=== PATIENT | male | born 1975 ===

== ENCOUNTER 2017-01-26 07:00 | Inpatient (IN) | payer OTHER ==
[~2017-01-26] VITALS: Ht 167.6 cm; Wt 92.5 kg
[2017-02-01] VITALS (12 sets, daily range): BP systolic 131–168; BP diastolic 77–107
[2017-02-01] MEDS ORDERED: AMLODIPINE BES2.5 MG ORAL ×2 (05:56→15:41)
[2017-02-01] MEDS ORDERED: Thrombin 5000 units TOPIC ONE (06:56)
--- NOTE | 2017-02-01 06:56 | Pre-Procedure Note/Attestation ---
Pre-Procedure Note/Attestation Complete Prior to Procedure Planned Procedure: not applicable Procedure Narrative: Cervical 56 artificial disc replacement, C67 anterior cervical discectomy and fusion Indications for Procedure Pre-Operative Diagnosis: Herniation C56,67 Attestation I attest that I discussed the nature of the procedure; its benefits; risks and complications; and alternatives (and the risks and benefits of such alternatives ), prior to the procedure, with the patient (or the patient's legal airport representative). I attest that, if there was a reasonable possibility of needing a blood transfusion, the patient (or the patient's legal airport representative) was given the [facility] standardized written summary, pursuant to the [place] Kathy Blood Safety Act ([place] Health and Safety Code # 1645, as amended). I attest that I re-evaluated the patient just prior to the surgery and that there has been no change in the patient's H&P, except as documented below: RADHA HOLLIS Feb 01, 2017 06:56
[2017-02-01] MEDS ORDERED: Bacitracin 50000 Units Vial ONE (06:57)
[2017-02-01] MEDS ORDERED: Surgicel 4in x 8in TOPIC ONE (06:57)
[2017-02-01] MEDS ORDERED: Vancomycin 1gm inj IVPB ONE (06:57)
--- NOTE | 2017-02-01 06:57 | Brief Operative Note ---
Immediate Post Operative Note Operative Note Chief Complaint: neck pain and radiculopathy Pre-op Diagnosis: Herniation C56,67 Procedure: Cervical 56 artificial disc replacement, C67 anterior cervical discectomy and fusion Post-op Diagnosis: same as pre-op Findings: consistent w/pre-op dx studies Surgeon: Bartolo Tape Rules Printing Machine Operator: Wolf Anesthesia: general Specimen: none Complications: none Condition: stable Estimated Blood Loss: minimal Drains: none Implant(s) used?: Yes - Prodisc c sz5, nuvasive interlock sz 6 and screws 13x3 RADHA HOLLIS Feb 01, 2017 06:57
[2017-02-01] MEDS ORDERED: Lidocaine 1% Plain 30 ml INJ ONE (07:00)
[2017-02-01] MEDS ORDERED: ceFAZolin sod 2 GM in D5W 110 ML IVPB ONE (07:00)
[2017-02-01] MEDS ORDERED: Dexamethasone 4mg/ml vial ONE (07:00)
[2017-02-01] MEDS ORDERED: NS Irrig 1000ml ONE (07:00)
[2017-02-01] MEDS ORDERED: Nimbex 2mg/ml Inj 10ML IVP ONE (07:00)
[2017-02-01] MEDS ORDERED: Propofol 1,000mg/ 100ml btl IV ONE (07:00)
[2017-02-01] MEDS ORDERED: Neostigmine 1mg/ml 10ml Inj ONE (07:00)
[2017-02-01] MEDS ORDERED: Sterile Water Irrig 1000ml IRRIG ONE (07:00)
[2017-02-01] MEDS ORDERED: Glycopyrrolate 0.2mg/ml 1ml Vial ONE (07:00)
[2017-02-01] MEDS ORDERED: LR 1000ml ONE (07:00)
[2017-02-01] MEDS ORDERED: fentaNYL 100 mcg/2 mL IV ONE (07:00)
[2017-02-01] MEDS ORDERED: Sugammadex Sodium 200mg/2ml vial IV ONE (07:00)
[2017-02-01] MEDS ORDERED: LR 1000ml 1,000 ML IVLG SCH (07:04)
--- NOTE | 2017-02-01 07:07 | Anethesia Preoperative Eval ---
Anesthesia Pre-op PMH/ROS General Date of Evaluation: Feb 01, 2017 Time of Evaluation: 07:11 Anesthesiologist: Zulma ASA Score: ASA 2 Mallampati Score Class I : Soft palate, uvula, fauces, pillars visible Class II: Soft palate, uvula, fauces visible Class III: Soft palate, base of uvula visible Class IV: Only hard plate visible Mallampati Classification: Class II Surgeon: Bartolo Diagnosis: Neck Pain Surgical Procedure: ADR C5-6, ACDF C6-7 Anesthesia History: none Family History: no anesthesia problems Allergies: Coded Allergies: No Known Allergies (Unverified , 01/31/17) Medications: see eMAR Past Medical History Cardiovascular: Reports: HTN Other: obesity - BMI 33 Anesthesia Pre-op Phys. Exam Physician Exam Last Vital Signs Date Time Temp Pulse Resp B/P (MAP) Pulse Ox O2 Delivery O2 Flow Rate FiO2 02/01/17 05:52 98.2 55 20 134/77 98 Room Air Constitutional: NAD Neurologic: CN 2-12 intact Cardiovascular: RRR Respiratory: CTA Gastrointestinal: S/NT/ND Airway Exam Mallampati Score: Class II MO: limited ROM: limited Teeth: intact Anesthesia Pre-op A/P Risk Assessment & Plan Assessment: ASA 2 Plan: GA, BIS, GlideScope Status Change Before Surgery: No Pre-Antibiotics Dru Grams Ancef IV Given Within 1 Hr of Incision: Yes Time Given: 07:31 Jr Maya MD Feb 01, 2017 07:07
[2017-02-01] MEDS ORDERED: Norco 7.5mg/325mg tab ORAL PRN ×3 (07:15→12:00)
[2017-02-01] MEDS ORDERED: Midazolam 2mg/2ml Inj IVP PRN (07:15)
[2017-02-01] MEDS ORDERED: Labetalol 5mg/ml 20ml vial IV PRN (07:15)
[2017-02-01] MEDS ORDERED: oxyCODONE HCL/Acetaminophen 5/325mg ORAL PRN (07:15)
[2017-02-01] MEDS ORDERED: DiphenhydrAMINE 50mg/ml Inj IVP PRN (07:15)
[2017-02-01] MEDS ORDERED: LORazepam Inj 2mg/ml 1ml IV PRN (07:15)
[2017-02-01] MEDS ORDERED: Ketorolac 60mg Inj IM PRN (07:15)
[2017-02-01] MEDS ORDERED: Acetaminophen (Non formulary) 100 ML IV ONE (07:15)
[2017-02-01] MEDS ORDERED: Ketorolac 30mg Inj IV PRN (07:15)
[2017-02-01] MEDS ORDERED: Atropine Inj 1mg/10ml Syr IV PRN (07:15)
[2017-02-01] MEDS ORDERED: fentaNYL 100 mcg/2 mL IV PRN (07:15)
[2017-02-01] MEDS ORDERED: Norco 5mg/325mg tab ORAL PRN ×2 (07:15→12:00)
[2017-02-01] MEDS ORDERED: Hydromorphone 0.5mg/0.5ml inj IVP PRN (07:15)
--- NOTE | 2017-02-01 07:17 | Immediate Post-Op Evaluation ---
Immediate Post-Op Evalulation Immediate Post-Op Evalulation Procedure: ADR C5-6, ACDF C6-7 Date of Evaluation: Feb 01, 2017 Blood Products: 0 Nausea: No Vomiting: No Complications 0 Patient Status: awake, reacts, patent, extubated, none Hydration Status: adequate Dru Grams Ancef IV Given Within 1 Hr of Incision: Yes Jr Maya MD Feb 01, 2017 07:17
--- NOTE | 2017-02-01 09:52 | Immediate Post-Op Evaluation ---
Immediate Post-Op Evalulation Immediate Post-Op Evalulation Procedure: ADR C5-6, ACDF C6-7 Date of Evaluation: Feb 01, 2017 Time of Evaluation: 10:03 IV Fluids: 1000 LR Blood Products: 0 Estimated Blood Loss: 25 Urinary Output: 300 Blood Pressure Systolic: 158 Blood Pressure Diastolic: 107 Pulse Rate: 91 Respiratory Rate: 16 O2 Sat by Pulse Oximetry: 100 Temperature (Fahrenheit): 97.8 Pain Score (1-10): 2 Nausea: No Vomiting: No Complications 0 Patient Status: awake, reacts, patent, extubated, none Hydration Status: adequate Dru Grams Ancef IV Given Within 1 Hr of Incision: Yes Time Given: 07:31 Jr Maya MD Feb 01, 2017 09:52
[2017-02-01] MEDS ORDERED: Metoclopramide 10mg/2ml Inj IVP PRN (12:00)
[2017-02-01] MEDS ORDERED: Naloxone 0.4mg/ml Inj IVP PRN (12:00)
[2017-02-01] MEDS ORDERED: HYDROmorphone 1mg/ml Carpuject SUBQ PRN (12:00)
[2017-02-01] MEDS ORDERED: HYDROmorphone 1mg/ml Carpuject IVP PRN (12:00)
[2017-02-01] MEDS ORDERED: Milk of Magnesia 30ml Ud ORAL PRN (12:00)
[2017-02-01] MEDS ORDERED: Chloraseptic Spray 20mL Bottle ORAL PRN (13:00)
[2017-02-01] MEDS: NS w/KCl 20mEq 1,000 ML IV SCH ×2 (13:02→23:30)
[2017-02-01] MEDS: Dexamethasone 4mg/ml vial IVP SCH ×3 (13:02→23:43)
--- NOTE | 2017-02-01 14:27 | Consultation ---
History of Present Illness General Date patient seen: Feb 01, 2017 Time patient seen: 14:27 Chief Complaint: intractable neck pain and radiculopathy Referring physician: Dr. Mcfarland Reason for Consultation: med oneil Present Illness HPI 41y/o male with h/o intractable neck pain and radiculopathy 2/2 cervical disc herniation who presents s/p cervical 56 artificial disc replacement, C67 anterior cervical discectomy and fusion today. Pt doing well immediately postop. Pain controlled. Denies f/c, n/v, d/c, chest pain, SOB. Allergies: Coded Allergies: No Known Allergies (Unverified , 01/31/17) Medication History Scheduled Amlodipine Besylate* (Amlodipine Besylate*), 2.5 MG ORAL DAILY Scheduled PRN Hydrocodone Bit/Acetaminophen 10-325* (Whiting 10-325*), 1 TAB ORAL Q8HR PRN for For Pain, (Reported) Patient History History Provided By: Patient, Medical Record, PMD Healthcare decision maker GABO- Resuscitation status Full Code Advanced Directive on File Past Medical/Surgical History Past Medical/Surgical History: (1) HTN (hypertension) (2) HNP (herniated nucleus pulposus), cervical Family History Family History: (1) No significant family history Social History Social History: (1) No significant social history Review of Systems ROS Narrative CONSTITUTIONAL: No weight loss, fever, chills, weakness or fatigue. HEENT: Eyes: No visual loss, blurred vision, double vision or yellow sclerae. Ears, Nose, Throat: No hearing loss, sneezing, congestion, runny nose or sore throat. SKIN: No rash or itching. CARDIOVASCULAR: No chest pain, chest pressure or chest discomfort. No palpitations or edema. RESPIRATORY: No shortness of breath, cough or sputum. GASTROINTESTINAL: No anorexia, nausea, vomiting or diarrhea. No abdominal pain or blood. NEUROLOGICAL: No headache, dizziness, syncope, paralysis, ataxia, numbness or tingling in the extremities. No change in bowel or bladder control. MUSCULOSKELETAL: No muscle, back pain, joint pain or stiffness. HEMATOLOGIC: No anemia, bleeding or bruising. LYMPHATICS: No enlarged nodes. No history of splenectomy. PSYCHIATRIC: No history of depression or anxiety. ENDOCRINOLOGIC: No reports of sweating, cold or heat intolerance. No polyuria or polydipsia. ALLERGIES: No history of asthma, hives, eczema or rhinitis. Physical Exam Physical Exam Narrative General: alert, cooperative, no distress, appears stated age Head: normocephalic, without obvious abnormality, atraumatic Eyes: conjunctivae/corneas clear. PERRL, EOM's intact Throat: lips, mucosa, and tongue normal. MMM Neck: supple, symmetrical, trachea midline, and no JVD Lungs: clear to auscultation bilaterally Heart: regular rate and rhythm, S1, S2 normal, no murmur, click, rub or gallop Abdomen: soft, non-tender, non-distended, bowel sounds normal; no masses or organomegaly Extremities: extremities normal, atraumatic, no cyanosis or edema Pulses: 2+ and symmetric Skin: skin color, texture, turgor normal; dressing c/d/i Neurologic: grossly normal, no focal deficits Last 24 Hour Vital Signs Date Time Temp Pulse Resp B/P (MAP) Pulse Ox O2 Delivery O2 Flow Rate FiO2 02/01/17 12:00 98.2 97 18 143/91 98 Nasal Cannula 3.0 02/01/17 11:00 97.3 68 16 166/85 98 Nasal Cannula 3.0 02/01/17 10:42 70 15 159/92 100 Nasal Cannula 3.0 02/01/17 10:30 73 17 164/97 100 Simple Mask 6.0 02/01/17 10:15 81 12 167/100 100 Simple Mask 6.0 02/01/17 10:00 90 14 168/102 100 Simple Mask 6.0 02/01/17 09:52 97.8 94 16 158/107 100 Room Air 02/01/17 09:52 91 16 100 02/01/17 09:50 97.8 94 16 158/107 100 Simple Mask 6.0 02/01/17 05:52 98.2 55 20 134/77 98 Room Air Intake and Output 02/01/17 02/02/17 19:00 07:00 Intake Total 300 ml Output Total 320 ml Balance -20 ml Intake Oral 50 ml IV Total 250 ml Output Urine Total 300 ml Estimated Blood Loss 20 ml Height (Feet): 5 Height (Inches): 6.00 Weight (Pounds): 204 Medications Current Medications Medications (Trade) Dose Ordered Sig/Di Route PRN Reason Start Time Stop Time Status Last Admin Dose Admin Acetaminophen (Tylenol) 650 mg Q4H PRN ORAL headache or temp>101 02/01/17 12:00 03/03/17 11:59 Acetaminophen/ Hydrocodone Bitart (Whiting 5/325) 1 tab Q3H PRN ORAL Mild Pain (Pain Scale 1-3) 02/01/17 12:00 02/08/17 11:59 Acetaminophen/ Hydrocodone Bitart (Whiting 7.5/325) 1 ea Q3H PRN ORAL Moderate Pain (Pain Scale 4-6) 02/01/17 12:00 02/08/17 11:59 Acetaminophen/ Hydrocodone Bitart (Whiting 7.5/325) 2 ea Q3H PRN ORAL Severe Pain (Pain Scale 7-10) 02/01/17 12:00 02/08/17 11:59 Carisoprodol (Soma) 350 mg TIDPRN PRN ORAL SPASM 02/01/17 12:00 03/03/17 11:59 Cefazolin Sodium 1 gm/Dextrose 55 ml @ 110 mls/hr Q8H IV 02/01/17 15:30 02/02/17 07:59 Cetylpyridinium Chloride (Cepacol) 1 lozenge Q2H PRN AVELINA THROAT SORENESS 02/01/17 12:00 03/03/17 11:59 Dexamethasone Sodium Phosphate (Decadron 4mg/ml vial) 4 mg Q6HR IVP 02/01/17 12:00 02/02/17 06:01 02/01/17 13:02 Docusate Sodium (Colace) 100 mg TWICE A DAY ORAL 02/01/17 18:00 03/03/17 17:59 Hydromorphone HCl (Dilaudid) 1 mg Q2H PRN IVP Breakthrough Pain 4-10 02/01/17 12:00 02/08/17 11:59 Hydromorphone HCl (Dilaudid) 1 mg Q4H PRN SUBQ Mild Pain (Pain Scale 1-3) 02/01/17 12:00 02/08/17 11:59 Hydromorphone HCl (Dilaudid) 2 mg Q3H PRN SUBQ Severe Pain (Pain Scale 7-10) 02/01/17 12:00 02/08/17 11:59 Hydromorphone HCl (Dilaudid) 2 mg Q4H PRN SUBQ Moderate Pain (Pain Scale 4-6) 02/01/17 12:00 02/08/17 11:59 Magnesium Hydroxide (Mom) 30 ml QIDPRN PRN ORAL Constipation 02/01/17 12:00 03/03/17 11:59 Metoclopramide HCl (Reglan) 10 mg Q6H PRN IVP Nausea & Vomiting 02/01/17 12:00 03/03/17 11:59 Naloxone HCl (Narcan) 0.1 mg PRN PRN IVP RR<12/min, pt unarousable 02/01/17 12:00 03/03/17 11:59 Ondansetron HCl (Zofran) 4 mg Q6H PRN IVP Nausea & Vomiting 02/01/17 12:00 03/03/17 11:59 Phenol/Menthol (Chloraseptic) 1 spray Q3H PRN ORAL THROAT SORENESS 02/01/17 13:00 03/03/17 12:59 Sodium Chloride 1,000 ml @ 100 mls/hr Q10H IV 02/01/17 12:45 03/03/17 12:44 02/01/17 13:02 Temazepam (Restoril) 15 mg HSPRN PRN ORAL Insomnia 02/01/17 21:00 02/08/17 20:59 Assessment/Plan Problem List: (1) HNP (herniated nucleus pulposus), cervical ICD Codes: M50.20 - Other cervical disc displacement, unspecified cervical region SNOMED: 04953515 (2) HTN (hypertension) ICD Codes: I10 - Essential (primary) hypertension SNOMED: 34890588 Status: stable Assessment/Plan s/p Cervical 56 artificial disc replacement, C67 anterior cervical discectomy and fusion Post operative recommendations include: - encourage mobilization/ambulation - encourage incentive spirometry to optimize pulmonary hygiene - DVT/GI prophylaxis as appropriate - pain control, supportive care, bowel regimen FULL CODE D/w pt/family, RN, SW/CM, surgery regarding mgmt and dispo Roger Dennis M.D. Feb 01, 2017 14:27
[2017-02-01] MEDS: ceFAZolin sod 1 GM in D5W 55 ML IV SCH ×2 (16:44→23:43)
[2017-02-01] MEDS: Docusate 100mg cap ORAL SCH (18:20)
--- NOTE | 2017-02-01 20:46 | Operative Note - Dictated ---
DATE OF OPERATION: 02/01/2017 DATE OF OPERATION: 02/01/2017. SURGEON: Manolo Mcfarland MD, orthopedic spine surgeon. STRIPPING SHOVEL OILER: MIN Sanchez. PREOPERATIVE DIAGNOSES: 1. Intractable neck pain. 2. Radiculopathy. 3. Herniation, C5-C6 and C6-C7. 4. Neural foraminal stenosis C5-C6 and C6-C7. 5. Stenosis. POSTOPERATIVE DIAGNOSES: 1. Intractable neck pain. 2. Radiculopathy. 3. Herniation, C5-C6 and C6-C7. 4. Neural foraminal stenosis C5-C6 and C6-C7. 5. Stenosis. PROCEDURE PERFORMED: 1. Anterior cervical discectomy and artificial disc replacement of C5-C6 and C6-C7 using a Synthes Prodisc C 5 height. Anterior Cervical discectomy and fusion C6-C7 at that level NuVasive Interlock-C size 6 mm with 1 mL of Osteocel bone, three screws of 13 mm. 2. Use of intraoperative microscope. 3. Motor evoked potential monitoring. 4. Somatosensory evoked potential monitoring. 5. Supervision and interpretation of fluoroscopy. COMPLICATIONS: None. ANESTHESIA: General. ESTIMATED BLOOD LOSS: Less than 100 mL. INDICATIONS FOR SURGERY: This patient is a 41-year-old male who has a history of diagnoses as listed above. As of result of this, the patient sustained intractable neck pain, radiculopathy, herniation, C5-C6 and C6-C7, neural foraminal stenosis C5-C6 and C6-C7 and stenosis. We tried a course of conservative management but despite this course there was still a significant component of persistent, recalcitrant neck pain and arm pain. The MRI demonstrated significant neural foraminal compromise secondary to disc herniations at C5-C6 and C6-C7. We had a long discussion with the patient regarding the risks and benefits of surgery. Our discussion included but was not limited to nonoperative management, chiropractic management, another epidural steroid injection as well definitive management in the form of surgery. We recommended a C5-C6 and C6-C7 as final definitive management. We reviewed the risks and benefits of surgery with the patient. Our discussion included a comprehensive review of the clinical issues and the nature of the clinical decision. We reviewed the alternatives, including doing nothing. The patient elected to proceed accordingly with anterior cervical discectomy and artificial disc replacement of C5-C6 and C6-C7 Anterior Cervical discectomy and fusion . We had a long discussion regarding the risks, alternatives and benefits of surgery. Our description of the risks included a discussion in person as well as a signed consent which detailed all pertinent risks from the procedure itself. Briefly, our discussion included but was not limited to infection, bleeding, pseudarthrosis, spinal cord injury, neurovascular injury, dural tear, CSF leak, neuropathy, paralysis, permanent weakness/drop foot/drop arm, paresthesias, blindness, palsy and weakness. The patient understood there may be a need for a revision surgery or additional procedures. Approach-related complications including dysphonia, dysphagia, blindness, permanent vocal cord and neural injury, hematoma, swallowing and breathing difficulty. Medical complications were reviewed including liver, kidney, shock, cardiopulmonary failure, anesthesia complications including , swelling, damage to the musculature, larynx/voice injury or loss, esophagus/throat, trachea, blood vessels and muscles/muscular sprain and lungs/pneumothorax during this surgical procedure; injury to deeper structures may be temporary or permanent. After this review of risks, the patient understood these and elected to proceed. A written and verbal consent was given. We discussed the pros and cons of all the alternatives. We discussed the uncertainties associated with the decision. Afterwards I assessed the patient's understanding and explored their preferences. All questions were answered and no guarantees were given. Medical clearance was obtained prior to surgery. INTRAOPERATIVE FINDINGS: A broad based disc herniation which was found posterior to a tear/rent in the posterior longitudinal ligament at C5-C6 and C6-C7 causing a considerable amount of neural foraminal stenosis with significant encroachment on the neural foramina and spinal cord. DESCRIPTION OF PROCEDURE: Under the benefit of general endotracheal anesthesia and with the assistance of the entire operative team, the patient was moved from the [facility] onto the operative table in the supine position. The head was secured and carefully positioned appropriately. Bilateral arms were secured with GelPads and foam and all bony prominences were padded. For the bilateral lower extremities SCD and JAVIER hose were placed for DVT prophylaxis. A surgical timeout was called which corroborated our planned procedure . Preoperative antibiotics were administered within 30 minutes of the incision for antibiotic prophylaxis. Using lateral fluoroscopic radiography, the operative levels were delineated. Next the wound was prepped and draped with Chlorhexidine and sterile drapes. An incision was based on lateral fluoroscopy and we centered our incision at the C5-C6 interspace and next using a standard Warren-Vasquez anterior based approach the incision was taken down through the skin and subcutaneous tissues until the vertebral bodies and their corresponding disc spaces were visualized. A needle was placed into the interspace to confirm placement of the operative interspace and we performed the remainder of procedure under microscopic visualization. Next, using a bipolar and Bovie cautery to ensure meticulous hemostasis, the longus colli was mobilized bilaterally and retractors were placed deep to the longus colli bilaterally to address retraction. Next we turned our attention to the radical anterior discectomy. This was initially performed at C5-C6. First by using a 15 blade scalpel followed by narrow pituitaries and a Microsect 5-B curette was used to denude the endplate of all cartilaginous tissue. Next using a [employer] AM8 drillbit the vertebral endplates were denuded in a [id number] and layer by layer fashion, and ultimately the posterior uncinate joints bilaterally and posterior osteophytic lips and margins causing central and lateral impingement were carefully denuded until visualization of the posterior longitudinal ligament was possible. An endplate preparation was performed in the exact same fashion using an intervertebral auto self service station attendant, sequential distraction was obtained throughout the disc space. We saw a tear/rent in the PLL and this was carefully mobilized and dissected using a Microsect 1-B curet until we visualized a broad-based disc herniation with compression of the spinal cord as well as neural foramina This neural foraminal compression was carefully resected using a Kerrison-1 and Kerrison-2 rongeurs until complete decompression of the spinal cord was visualized and complete decompression of the neural foramina and nerve root therein as well as the axilla and lateral margin of the nerve root was visualized and subsequently completely decompressed. We next turned our attention towards trialing our implant within the disc space. We initially tried size 5 and the Prodisc Cervical spacer fit well in regards to depth and width. This implant was opened and prepared. Next under direct visualization I confirmed excellent fit in respect to the anterior and posterior vertebral bodies, the uncinate joints and in regards to toggle. Once satisfied with this placement on serial AP and lateral fluoroscopy I turned my attention towards cutting our fadi. These were cut in the bones using a reciprocating drill and afterwards all free fragments of bone were irrigated. Next FloSeal was placed into the interspace and the implant was inserted using fluoroscopic guidance. Next the Synthes Prodisc C size 5 ADR was then carefully advanced and secured into the intervertebral space under direct visualization and with supervision of AP and lateral fluoroscopic views. Next we turned our attention to the radical anterior discectomy. This was initially performed at C67. First by using a 15 blade scalpel followed by narrow pituitaries and a Microsect 5-B curette was used to denude the endplate of all cartilaginous tissue. Next using a R[employer] AM8 drillbit the vertebral endplates were denuded in a [id number] and layer by layer fashion, and ultimately the posterior uncinate joints bilaterally and posterior osteophytic lips and margins causing central and lateral impingement were carefully denuded until visualization of the posterior longitudinal ligament was possible. An endplate preparation was performed in the exact same fashion using an intervertebral auto self service station attendant, sequential distraction was obtained throughout the disc space. We saw a tear/rent in the PLL and this was carefully mobilized and dissected using a Microsect 1-B curet until we visualized a broad-based disc herniation with compression of the spinal cord as well as neural foramina This neural foraminal compression was carefully resected using a Kerrison-1 and Kerrison-2 rongeurs until complete decompression of the spinal cord was visualized and complete decompression of the neural foramina and nerve root therein as well as the axilla and lateral margin of the nerve root was visualized and subsequently completely decompressed. We next turned our attention towards trialing our implant within the disc space. We initally trialled a size 5 and then a size 6 which fit best. this peek implant from [employer] was packed with 1cc osteocell bone and inserted using fluoroscopy. This was then secured from a plating standpoint with 3 screws of 13mm length and confirmed radiographically. After a finger sweep we confirmed removal of all sponges. The retractor was removed and we next turned our attention to meticulous hemostasis with FloSeal and bipolar cautery. After the sponge and needle count was again found to be correct with our second count, we next turned our attention to closure. The wound was again copiously irrigated with antibiotic impregnated saline. Closure consisted of 4-0 clear nylon for the platysma, and 6-0 clear nylon for the superficial skin. Final skin closure and dressings consisted of Dermabond. Prior to final closure, a final radiograph was obtained which demonstrated the hardware is intact with excellent position throughout. The patient tolerated the procedure well. The patient was carefully extubated after the conclusion of surgery. We discussed the findings of the surgery with the family upon completion of the case. At this point the patient was transferred to the spine floor for further observation. Manolo Mcfarland M.D. DR: JAN JOB#: [id number] CC: FLORENCIA
[2017-02-02 00:18] VITALS: BP 139/80
[2017-02-02 04:00] VITALS: BP 149/82
--- NOTE | 2017-02-02 05:01 | Diagnostic Imaging Report ---
Indication: Intraoperative; bilateral upper and lower extremity pain and neck pain Technique: Intraoperative images Comparison: None Findings: Surgical tool projects at the anterior aspect of the C6-7 disc. Subsequent images document placement of a disc prosthesis at C5-6, anterior fusion at C6-7. Impression: Intraoperative imaging, as described
[2017-02-02] MEDS: Dexamethasone 4mg/ml vial IVP SCH (05:40)
[2017-02-02] MEDS: ceFAZolin sod 1 GM in D5W 55 ML IV SCH (06:37)
[2017-02-02 08:00] VITALS: BP 153/99
[2017-02-02] MEDS: NS w/KCl 20mEq 1,000 ML IV SCH (08:45)
[2017-02-02] MEDS: Docusate 100mg cap ORAL SCH (08:50)
[2017-02-02] MEDS ORDERED: NORCO 10-325 T1 EACH ORAL (10:11)
[2017-02-02 12:19] VITALS: BP 148/87
--- NOTE | 2017-02-02 12:20 | 48 Hour Post Anesthesia Eval ---
Post Anesthesia Evaluation Procedure: ADR C5-6, ACDF C6-7 Date of Evaluation: Feb 02, 2017 Time of Evaluation: 09:20 Blood Pressure Systolic: 148 0: 87 Pulse Rate: 72 Respiratory Rate: 20 Temperature (Fahrenheit): 97.6 O2 Sat by Pulse Oximetry: 99 Airway: patent Nausea: No Vomiting: No Pain Intensity: 2 Hydration Status: adequate Cardiopulmonary Status: stable Mental Status/LOC: patient returned to baseline Follow-up Care/Observations: n/a Post-Anesthesia Complications: none Follow-up care needed: ready to discharge TAMI RUST M.D. Feb 02, 2017 12:19
--- NOTE | 2017-02-03 10:53 | Discharge Summary ---
Discharge Summary Hospital Course Date of Admission Feb 01, 2017 at 05:13 Date of Discharge Feb 02, 2017 at 10:41 Admitting Diagnosis HPI Nehemiah Bell is a 41 year old male who was admitted on Feb 01, 2017 at 05:13 for Cervical Herniated Disc Hospital Course [id number] Discharge Discharge Disposition Patient was discharged to Home (01) Discharge Diagnoses: Selma Villarreal NP Feb 03, 2017 10:53
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
== END 2017-02-02 10:41 | disposition home or self-care (01) | DRG 473 ==
LOC: SDSOVERFLO 02-01 05:13 → 3E 02-01 11:15
PROC: 0RT30ZZ Resection of Cervical Vertebral Disc, Open Approach (ICD-10-PCS; principal; 2017-02-01 07:30)
PROC: 01N10ZZ Release Cervical Nerve, Open Approach (ICD-10-PCS; principal; 2017-02-01 07:30)
PROC: 0RG20A0 Fusion of 2 or more Cervical Vertebral Joints with Interbody Fusion Device, Anterior Approach, Anterior Column, Open Approach (ICD-10-PCS; principal; 2017-02-01 07:30)
DX: M50.122 Cervical disc disorder at C5-C6 level with radiculopathy (principal); I10 Essential (primary) hypertension; M48.02 Spinal stenosis, cervical region; Z87.891 Personal history of nicotine dependence; V89.2XXS Person injured in unspecified motor-vehicle accident, traffic, sequela; M54.5 Low back pain
CPT/HCPCS: 36415; 72040; 76001; 86850; 86900; 86901; 87081; 94003; 94150; J2250; J2405; J2710